=== PATIENT | female | born 1985 | race African-American/Black ===

== ENCOUNTER 2022-09-04 17:07 | Inpatient (IN) | payer SELFPAY ==
[2022-09-04 20:28] VITALS: BMI 26.4
[2022-09-04] MEDS ORDERED: Dextrose 5% in Water 1,000 ML IV PRN (21:20)
[2022-09-04] MEDS ORDERED: Dextrose 50% Abboject 50 ML SYRINGE SLOW IVP PRN (21:20)
[2022-09-04] MEDS ORDERED: Glucagon 1 MG/ML KIT IM PRN (21:20)
[2022-09-04] MEDS: Ketorolac Tromethamine 30 MG/ML VIAL IVP PRN (21:31)
[2022-09-04] MEDS: Lactated Ringer's 1,000 ML IV SCH (21:32)
[2022-09-04] MEDS: Pantoprazole 40 MG VIAL IVP SCH (21:32)
[2022-09-04] MEDS: HumaLOG 300 UNITS/3 ML VIAL SC PRN (21:46)
[2022-09-05 06:29] LABS: Hemoglobin 12.3 g/dL (12.0-16.0); Manual Diff?? YES; Mean Corpuscular HGB CONC 31.6 g/dL (32.0-36.0); Mean Corpuscular Hemoglobin 26.2 pg (27.0-31.0); Mean Corpuscular Volume 82.8 fl (78.0-98.0); Platelet Count 170 10x3/uL (130-400); RBC Distribution Width 14.1 % (11.5-14.5); White Blood Cell (WBC) Count 4.1 10x3/uL (4.8-10.8)
[2022-09-05] MEDS: Lactated Ringer's 1,000 ML IV SCH ×3 (06:35→14:41)
[2022-09-05] MEDS: Morphine 4 MG/ML VIAL SLOW IVP PRN ×3 (06:35→22:37)
[2022-09-05 06:45] LABS: Delete Auto Diff?? YES; Hemoglobin A1c Greater than 14.0 % (4.0-6.0)
[2022-09-05 07:06] LABS: Chloride 104 mmol/L (98-107); Potassium 3.5 mmol/L (3.5-5.1); Sodium 135 mmol/L (136-145)
[2022-09-05 07:13] LABS: Band 29 % (5-11); Eosinophils 1 % (0-10); Large Platelets 8.1 % (0-5); Lymphocytes 34 % (21-51); Metamyelocyte 1 % (0-0); Monocytes 11 % (0-10); Neutrophil 15 % (42-75); Platelet Adequacy Comment Platelets Normal; Polychromasia SLIGHT = 2-3 cells HPF (0-2); Reactive Lymphocytes 6 % (0-10); Total Cell Count 99
[2022-09-05 08:23] LABS: ALT (SGPT) 7 U/L (8-55); AST (SGOT) 9 U/L (5-34); Albumin 3.4 g/dL (3.5-5.0); Alkaline Phosphatase 72 U/L (40-110); Anion Gap 21 mmol/L (10-20); BUN (Urea Nitrogen) 7 mg/dL (7.0-18.7); Bilirubin, Total 0.9 mg/dL (0.2-1.2); Calc. Creatinine Clearance 99 mL/min (70-130); Calcium 8.5 mg/dL (7.8-10.44); Carbon Dioxide 14 mmol/L (22-29); Estimated GFR 86; Globulin 2.7 g/dL (2.4-3.5); Glucose 283 mg/dL (70-105); Protein, Total 6.1 g/dL (6.0-8.3)
[2022-09-05] MEDS: Ketorolac Tromethamine 30 MG/ML VIAL IVP PRN ×2 (18:29→23:02)
[2022-09-05] MEDS: HumaLOG 300 UNITS/3 ML VIAL SC PRN (18:29)
[2022-09-05] MEDS: Pantoprazole 40 MG VIAL IVP SCH (22:37)
[2022-09-06] MEDS ORDERED: Ibuprofen 600 MG TAB PO PRN (00:42)
[2022-09-06] MEDS ORDERED: Acetaminophen 500 MG TAB PO PRN (00:42)
[2022-09-06] MEDS: HumaLOG 300 UNITS/3 ML VIAL SC PRN ×5 (00:55→22:00)
[2022-09-06] MEDS: Lactated Ringer's 1,000 ML IV SCH ×4 (00:55→16:07)
[2022-09-06] MEDS: traMADol HCl 50 MG TAB PO PRN ×3 (01:03→21:48)
[2022-09-06 07:33] LABS: Manual Diff?? YES; Mean Corpuscular HGB CONC 31.8 g/dL (32.0-36.0); Mean Corpuscular Hemoglobin 26.4 pg (27.0-31.0); Mean Corpuscular Volume 82.9 fl (78.0-98.0); Mean Platelet Volume 11.4 fL (7.4-10.4); Platelet Count 165 10x3/uL (130-400); RBC Distribution Width 14.1 % (11.5-14.5); Red Blood Cell (RBC) Count 4.55 mill/uL (4.20-5.40); White Blood Cell (WBC) Count 4.2 10x3/uL (4.8-10.8)
[2022-09-06 07:38] LABS: Delete Auto Diff?? YES
[2022-09-06 07:58] LABS: Anisocytosis SLIGHT = 6-15 cells HPF (0-5); Band 32 % (5-11); CellaVision Operator ID LAB.CLH1; Large Platelets 8.9 % (0-5); Lymphocytes 31 % (21-51); Metamyelocyte 1 % (0-0); Monocytes 14 % (0-10); Myelocyte 1 % (0-0); Neutrophil 21 % (42-75); Platelet Adequacy Comment Platelets Normal; Reactive Lymphocytes 1 % (0-10); Total Cell Count 101
[2022-09-06 08:08] LABS: ALT (SGPT) 7 U/L (8-55); AST (SGOT) 9 U/L (5-34); Albumin 3.4 g/dL (3.5-5.0); Alkaline Phosphatase 75 U/L (40-110); Anion Gap 17 mmol/L (10-20); BUN (Urea Nitrogen) 6 mg/dL (7.0-18.7); Bilirubin, Total 0.6 mg/dL (0.2-1.2); Calc. Creatinine Clearance 94 mL/min (70-130); Calcium 9.1 mg/dL (7.8-10.44); Carbon Dioxide 18 mmol/L (22-29); Chloride 102 mmol/L (98-107); Estimated GFR 81; Glucose 326 mg/dL (70-105); Potassium 3.1 mmol/L (3.5-5.1); Protein, Total 6.4 g/dL (6.0-8.3); Sodium 134 mmol/L (136-145)
[2022-09-06] MEDS ORDERED: Insulin Glargine 30 UNITS/0.3 ML VIAL SC SCH (09:00)
[2022-09-06] MEDS: Morphine 4 MG/ML VIAL SLOW IVP PRN ×2 (10:30→16:13)
[2022-09-06] MEDS: Ondansetron PF 4 MG/2 ML Vial IVP PRN ×2 (10:31→21:49)
[2022-09-06] MEDS: Potassium Chloride 20 MEQ in Premix Bag 1 BAG IVPB SCH ×2 (10:31→12:06)
[2022-09-06] MEDS ORDERED: Potassium Chloride 20 MEQ TAB PO SCH (11:30)
[2022-09-06 12:44] LABS: Creatinine, Urine 74.92 mg/dL (47-110); Microalbumin Urine 1.2 mg/dL (0.5-50.0)
[2022-09-06] MEDS: Ketorolac Tromethamine 30 MG/ML VIAL IVP PRN ×2 (13:58→21:49)
[2022-09-06] MEDS: metFORMIN 500 MG TAB PO SCH (16:07)
[2022-09-06] MEDS: glipiZIDE 5 MG TAB PO SCH (16:07)
[2022-09-06] MEDS ORDERED: Promethazine HCl 12.5 MG in Sodium Chloride 0.9% 50 ML IVPB SCH (20:30)
[2022-09-06] MEDS: Pantoprazole 40 MG VIAL IVP SCH (21:50)
[2022-09-07] MEDS: Lactated Ringer's 1,000 ML IV SCH ×5 (03:09→23:00)
[2022-09-07 05:44] LABS: Hemoglobin 12.7 g/dL (12.0-16.0); Manual Diff?? YES; Mean Corpuscular HGB CONC 31.8 g/dL (32.0-36.0); Mean Corpuscular Hemoglobin 26.3 pg (27.0-31.0); Mean Corpuscular Volume 82.8 fl (78.0-98.0); Platelet Count 186 10x3/uL (130-400); RBC Distribution Width 13.7 % (11.5-14.5); Red Blood Cell (RBC) Count 4.83 mill/uL (4.20-5.40); White Blood Cell (WBC) Count 3.1 10x3/uL (4.8-10.8)
[2022-09-07 06:10] LABS: ALT (SGPT) 8 U/L (8-55); AST (SGOT) 12 U/L (5-34); Albumin 3.4 g/dL (3.5-5.0); Alkaline Phosphatase 71 U/L (40-110); Anion Gap 17 mmol/L (10-20); BUN (Urea Nitrogen) 6 mg/dL (7.0-18.7); Bilirubin, Total 0.7 mg/dL (0.2-1.2); Calc. Creatinine Clearance 111 mL/min (70-130); Carbon Dioxide 18 mmol/L (22-29); Cardiac Risk 4.3 (Less than 4.5); Chloride 102 mmol/L (98-107); Cholesterol 156 mg/dl (< 200 Desired); Estimated GFR 100; Globulin 2.9 g/dL (2.4-3.5); Glucose 233 mg/dL (70-105); HDL Cholesterol 36 mg/dL (>60 Neg Risk); LDL Cholesterol, Calculated 96 mg/dL; Magnesium 1.4 mg/dL (1.6-2.6); Phosphorus 4.5 mg/dL (2.3-4.7); Potassium 3.4 mmol/L (3.5-5.1); Protein, Total 6.3 g/dL (6.0-8.3); Sodium 134 mmol/L (136-145); Triglycerides 118 mg/dL (Less than 150)
[2022-09-07 06:19] LABS: Delete Auto Diff?? YES
[2022-09-07] MEDS: glipiZIDE 5 MG TAB PO SCH ×2 (06:23→18:38)
[2022-09-07 07:09] LABS: Band 44 % (5-11); CellaVision Operator ID LAB.JMM; Eosinophils 1 % (0-10); Large Platelets 6.9 % (0-5); Lymphocytes 19 % (21-51); Metamyelocyte 1 % (0-0); Monocytes 14 % (0-10); Neutrophil 19 % (42-75); Platelet Adequacy Comment Platelets Normal; RBC Morphology Within Normal Limits; Reactive Lymphocytes 2 % (0-10); Smudge Cells 10.9 %; Total Cell Count 101
[2022-09-07] MEDS ORDERED: Magnesium Sulfate In Water 4 GM in Premix Bag 1 BAG IVPB SCH (08:15)
[2022-09-07] MEDS: metFORMIN 500 MG TAB PO SCH (10:34)
[2022-09-07] MEDS: Potassium Chloride 20 MEQ in Premix Bag 1 BAG IVPB SCH ×2 (10:53→12:54)
[2022-09-07] MEDS ORDERED: Morphine 2 MG/ML VIAL SLOW IVP PRN (11:41)
[2022-09-07] MEDS ORDERED: Morphine 2 MG/ML VIAL SLOW IVP SCH ×2 (11:45→20:00)
[2022-09-07] MEDS: HumaLOG 300 UNITS/3 ML VIAL SC PRN ×2 (13:19→18:55)
[2022-09-07] MEDS ORDERED: HumaLOG 300 UNITS/3 ML VIAL SC PRN (16:08)
[2022-09-07] MEDS ORDERED: Morphine 4 MG/ML VIAL ONE (18:19)
[2022-09-07] MEDS ORDERED: Morphine 4 MG/ML VIAL SLOW IVP SCH (18:45)
[2022-09-07] MEDS: Pantoprazole 40 MG VIAL IVP SCH (20:07)
[2022-09-07] MEDS ORDERED: Insulin Glargine 30 UNITS/0.3 ML VIAL SC SCH (21:00)
[2022-09-07] MEDS ORDERED: fentaNYL PF 100 MCG/2 ML SYRINGE ONE (22:56)
[2022-09-07] MEDS ORDERED: HYDROmorphone 2 MG/ML VIAL ONE (22:56)
[2022-09-07] MEDS ORDERED: SUGAMMADEX SODIUM 200 MG/2 ML VIAL ONE (22:57)
[2022-09-07] MEDS ORDERED: Ondansetron PF 4 MG/2 ML Vial ONE (23:58)
[2022-09-07] MEDS ORDERED: Dexamethasone 20 MG/5 ML VIAL ONE (23:58)
[2022-09-07] MEDS ORDERED: Lidocaine 1% PF 5 ML VIAL ONE (23:58)
[2022-09-07] MEDS ORDERED: Rocuronium Bromide 10 MG/ML (10ML VIAL) ONE (23:58)
[2022-09-07] MEDS ORDERED: PROPOFOL 200 MG/20 ML VIAL ONE (23:58)
[2022-09-07] MEDS ORDERED: PHENYLEPHRINE-NS 100 MCG/ML 10 ML SYRINGE ONE (23:58)
[2022-09-07] MEDS ORDERED: Ketorolac Tromethamine 30 MG/ML VIAL ONE (23:58)
[2022-09-08] MEDS ORDERED: fentaNYL 50 mcg/mL 1 mL Vial ONE ×4 (01:39→02:24)
[2022-09-08] MEDS ORDERED: Promethazine HCl 25 MG/ML VIAL IM PRN (01:59)
[2022-09-08] MEDS ORDERED: diphenhydrAMINE 25 MG CAP PO PRN (01:59)
[2022-09-08] MEDS ORDERED: diphenhydrAMINE 50 MG/ML VIAL IVP PRN (01:59)
[2022-09-08] MEDS ORDERED: diphenhydrAMINE 50 MG/ML VIAL IM PRN (01:59)
[2022-09-08] MEDS ORDERED: Naloxone HCl 0.4 mg/ml Vial IV PRN (01:59)
[2022-09-08] MEDS ORDERED: HYDROmorphone 10 mg/100 ml CADD IVPB PRN (01:59)
[2022-09-08] MEDS ORDERED: Communication Order-Pharmacy FS SCH (02:00)
[2022-09-08] MEDS: Ketorolac Tromethamine 30 MG/ML VIAL IVP PRN ×2 (03:30→23:33)
[2022-09-08] MEDS: HumaLOG 300 UNITS/3 ML VIAL SC PRN ×4 (06:31→20:52)
[2022-09-08 06:33] LABS: Hemoglobin 13.4 g/dL (12.0-16.0); Mean Corpuscular HGB CONC 31.3 g/dL (32.0-36.0); Mean Corpuscular Hemoglobin 26.2 pg (27.0-31.0); Mean Corpuscular Volume 83.6 fl (78.0-98.0); Mean Platelet Volume 11.1 fL (7.4-10.4); Platelet Count 198 10x3/uL (130-400); RBC Distribution Width 13.9 % (11.5-14.5); Red Blood Cell (RBC) Count 5.12 mill/uL (4.20-5.40); White Blood Cell (WBC) Count 3.2 10x3/uL (4.8-10.8)
[2022-09-08 06:39] LABS: Delete Auto Diff?? YES; Manual Diff?? YES
[2022-09-08 06:59] LABS: ALT (SGPT) 9 U/L (8-55); AST (SGOT) 11 U/L (5-34); Albumin 3.2 g/dL (3.5-5.0); Alkaline Phosphatase 67 U/L (40-110); Anion Gap 20 mmol/L (10-20); BUN (Urea Nitrogen) 7 mg/dL (7.0-18.7); Bilirubin, Total 0.5 mg/dL (0.2-1.2); Calc. Creatinine Clearance 106 mL/min (70-130); Calcium 8.2 mg/dL (7.8-10.44); Carbon Dioxide 14 mmol/L (22-29); Chloride 107 mmol/L (98-107); Estimated GFR 94; Globulin 2.7 g/dL (2.4-3.5); Glucose 323 mg/dL (70-105); Magnesium 1.7 mg/dL (1.6-2.6); Phosphorus 4.5 mg/dL (2.3-4.7); Potassium 3.7 mmol/L (3.5-5.1); Protein, Total 5.9 g/dL (6.0-8.3); Sodium 137 mmol/L (136-145)
[2022-09-08 07:02] LABS: Band 48 % (5-11); Burr Cells SLIGHT = 2-5 cells HPF (0-1); CellaVision Operator ID lab.abc; Large Platelets 8.6 % (0-5); Lymphocytes 11 % (21-51); Metamyelocyte 2 % (0-0); Monocytes 15 % (0-10); Neutrophil 25 % (42-75); Platelet Adequacy Comment Platelets Normal; RBC Morphology Within Normal Limits; Smudge Cells 9.5 %; Total Cell Count 105
[2022-09-08] MEDS ORDERED: HumaLOG 300 UNITS/3 ML VIAL SC PRN (08:24)
[2022-09-08] MEDS ORDERED: Sodium Chloride 0.9% 1,000 ML IV SCH (08:30)
[2022-09-08] MEDS ORDERED: Potassium Chloride 20 MEQ in Premix Bag 1 BAG IVPB SCH (08:30)
[2022-09-08] MEDS ORDERED: Insulin Glargine 30 UNITS/0.3 ML VIAL SC SCH ×2 (09:00→21:00)
[2022-09-08] MEDS: Lactated Ringer's 1,000 ML IV SCH (09:51)
[2022-09-08] MEDS ORDERED: Magnesium Sulfate In Water 4 GM in Premix Bag 1 BAG IVPB SCH (10:00)
[2022-09-08] MEDS: D5 LR w/20 mEq KCL 1,000 ML IV SCH ×2 (12:19→20:43)
[2022-09-08 16:39] LABS: Anion Gap 16 mmol/L (10-20); BUN (Urea Nitrogen) 5 mg/dL (7.0-18.7); Calc. Creatinine Clearance 118 mL/min (70-130); Calcium 8.3 mg/dL (7.8-10.44); Carbon Dioxide 18 mmol/L (22-29); Chloride 106 mmol/L (98-107); Estimated GFR 106; Glucose 283 mg/dL (70-105); Sodium 136 mmol/L (136-145)
[2022-09-08] MEDS: Pantoprazole 40 MG VIAL IVP SCH (20:02)
[2022-09-09] MEDS: HumaLOG 300 UNITS/3 ML VIAL SC PRN ×4 (01:38→17:15)
[2022-09-09] MEDS: D5 LR w/20 mEq KCL 1,000 ML IV SCH (04:58)
[2022-09-09 06:14] LABS: #Monocytes 1.2 thou/uL (0.11-0.59); #Neutrophils 2.1 thou/uL (1.40-6.50); %Basophils 0.4 % (0.0-1.0); %Eosinophils 0.9 % (0.0-10.0); %Lymphocytes 25.9 % (21.0-51.0); %Monocytes 26.4 % (0.0-10.0); Hemoglobin 11.4 g/dL (12.0-16.0); Manual Diff?? YES; Mean Corpuscular HGB CONC 31.6 g/dL (32.0-36.0); Mean Corpuscular Hemoglobin 26.3 pg (27.0-31.0); Mean Corpuscular Volume 83.4 fl (78.0-98.0); Mean Platelet Volume 11.2 fL (7.4-10.4); Platelet Count 187 10x3/uL (130-400); Red Blood Cell (RBC) Count 4.33 mill/uL (4.20-5.40); White Blood Cell (WBC) Count 4.6 10x3/uL (4.8-10.8)
[2022-09-09 06:41] LABS: ALT (SGPT) 8 U/L (8-55); AST (SGOT) 8 U/L (5-34); Alkaline Phosphatase 67 U/L (40-110); Anion Gap 11 mmol/L (10-20); BUN (Urea Nitrogen) 5 mg/dL (7.0-18.7); Bilirubin, Total 0.4 mg/dL (0.2-1.2); Calc. Creatinine Clearance 116 mL/min (70-130); Calcium 8.4 mg/dL (7.8-10.44); Carbon Dioxide 22 mmol/L (22-29); Chloride 108 mmol/L (98-107); Estimated GFR 104; Globulin 2.7 g/dL (2.4-3.5); Glucose 248 mg/dL (70-105); Magnesium 2.1 mg/dL (1.6-2.6); Potassium 3.2 mmol/L (3.5-5.1); Protein, Total 5.7 g/dL (6.0-8.3); Sodium 138 mmol/L (136-145)
[2022-09-09 06:48] LABS: Phosphorus 2.1 mg/dL (2.3-4.7)
[2022-09-09] MEDS ORDERED: HumaLOG 300 UNITS/3 ML VIAL SC PRN (07:29)
[2022-09-09] MEDS ORDERED: Insulin Glargine 30 UNITS/0.3 ML VIAL SC SCH ×2 (07:30→09:00)
[2022-09-09 07:36] LABS: Band 38 % (5-11); Eosinophils 1 % (0-10); Lymphocytes 25 % (21-51); Monocytes 24 % (0-10); Neutrophil 10 % (42-75); Platelet Adequacy Comment Platelets Normal; Total Cell Count 100
[2022-09-09] MEDS ORDERED: Dextrose 5%-Lactated Ringers 1,000 ML IV SCH ×2 (10:45→10:57)
[2022-09-09] MEDS: Potassium Chloride 20 MEQ in Premix Bag 1 BAG IVPB SCH ×2 (12:29→23:57)
[2022-09-09] MEDS: Ketorolac Tromethamine 30 MG/ML VIAL IVP PRN ×2 (12:43→20:34)
[2022-09-09] MEDS: Dextrose 5%-Lactated Ringers 1,000 ML IV SCH (20:33)
[2022-09-09] MEDS: traMADol HCl 50 MG TAB PO PRN (20:34)
[2022-09-09] MEDS ORDERED: Phenol 118 ML BOT PO PRN (20:43)
[2022-09-09] MEDS: Pantoprazole 40 MG VIAL IVP SCH (20:47)
[2022-09-09] MEDS: Ondansetron PF 4 MG/2 ML Vial IVP PRN (23:57)
[2022-09-10] MEDS: Dextrose 5%-Lactated Ringers 1,000 ML IV SCH ×2 (04:25→13:43)
[2022-09-10 06:19] LABS: #Eosinphils 0.1 thou/uL (0.0-0.7); #Monocytes 0.7 thou/uL (0.11-0.59); #Neutrophils 1.8 thou/uL (1.40-6.50); %Basophils 0.2 % (0.0-1.0); %Eosinophils 1.6 % (0.0-10.0); %Lymphocytes 38.7 % (21.0-51.0); %Monocytes 16.8 % (0.0-10.0); %Neutrophils 42.2 % (42.0-75.0); Hemoglobin 10.3 g/dL (12.0-16.0); Mean Corpuscular HGB CONC 31.9 g/dL (32.0-36.0); Mean Corpuscular Hemoglobin 26.1 pg (27.0-31.0); Mean Platelet Volume 11.4 fL (7.4-10.4); Platelet Count 186 10x3/uL (130-400); RBC Distribution Width 14.1 % (11.5-14.5); Red Blood Cell (RBC) Count 3.94 mill/uL (4.20-5.40); White Blood Cell (WBC) Count 4.3 10x3/uL (4.8-10.8)
[2022-09-10 06:46] LABS: Phosphorus 3.5 mg/dL (2.3-4.7)
[2022-09-10 06:48] LABS: ALT (SGPT) 7 U/L (8-55); AST (SGOT) 7 U/L (5-34); Albumin 2.7 g/dL (3.5-5.0); Alkaline Phosphatase 63 U/L (40-110); Anion Gap 11 mmol/L (10-20); BUN (Urea Nitrogen) 6 mg/dL (7.0-18.7); Bilirubin, Total 0.3 mg/dL (0.2-1.2); Calc. Creatinine Clearance 136 mL/min (70-130); Calcium 8.1 mg/dL (7.8-10.44); Carbon Dioxide 24 mmol/L (22-29); Chloride 110 mmol/L (98-107); Estimated GFR 116; Globulin 2.1 g/dL (2.4-3.5); Glucose 193 mg/dL (70-105); Magnesium 1.8 mg/dL (1.6-2.6); Potassium 3.7 mmol/L (3.5-5.1); Protein, Total 4.8 g/dL (6.0-8.3); Sodium 141 mmol/L (136-145)
[2022-09-10] MEDS ORDERED: Magnesium 2 GM/50 ML(in water) 2 GM in Premix Bag 1 BAG IVPB SCH (08:00)
[2022-09-10] MEDS ORDERED: Insulin Glargine 30 UNITS/0.3 ML VIAL SC SCH (09:00)
[2022-09-10] MEDS ORDERED: Morphine 2 MG/ML VIAL SLOW IVP PRN (09:11)
[2022-09-10] MEDS: Potassium Chloride 20 MEQ in Premix Bag 1 BAG IVPB SCH ×2 (10:34→14:10)
[2022-09-10] MEDS: HumaLOG 300 UNITS/3 ML VIAL SC PRN (12:04)
[2022-09-10] MEDS: Acetaminophen 500 MG TAB PO SCH ×2 (12:06→17:56)
[2022-09-10] MEDS: traMADol HCl 50 MG TAB PO SCH ×2 (12:06→17:56)
[2022-09-10] MEDS ORDERED: Dextrose 5%-Lactated Ringers 1,000 ML IV SCH ×2 (12:23→13:57)
[2022-09-10] MEDS ORDERED: HumaLOG 300 UNITS/3 ML VIAL SC PRN ×2 (12:23)
[2022-09-10] MEDS: traMADol HCl 50 MG TAB PO PRN (15:19)
[2022-09-10] MEDS: Potassium Bicarbonate/Cit Ac 20 MEQ TAB PO SCH ×2 (17:57→21:27)
[2022-09-10] MEDS ORDERED: D5 1/2 NS w/20 mEq KCL 1,000 ML IV SCH (19:15)
[2022-09-10] MEDS: Ketorolac Tromethamine 30 MG/ML VIAL IVP PRN (21:27)
[2022-09-10] MEDS: Cyclobenzaprine 10 MG TAB PO PRN (21:27)
[2022-09-10] MEDS: Pantoprazole 40 MG VIAL IVP SCH (21:36)
[2022-09-10] MEDS: Ondansetron PF 4 MG/2 ML Vial IVP PRN (21:55)
[2022-09-10] MEDS ORDERED: Simethicone Chewable 80 MG TAB PO PRN (22:41)
[2022-09-11] MEDS: Acetaminophen 500 MG TAB PO SCH ×4 (01:24→18:22)
[2022-09-11] MEDS: traMADol HCl 50 MG TAB PO SCH ×5 (01:25→21:38)
[2022-09-11] MEDS ORDERED: Ibuprofen 600 MG TAB PO PRN (02:00)
[2022-09-11 06:05] LABS: #Eosinphils 0.1 thou/uL (0.0-0.7); #Monocytes 0.7 thou/uL (0.11-0.59); #Neutrophils 1.8 thou/uL (1.40-6.50); %Basophils 0.5 % (0.0-1.0); %Eosinophils 2.2 % (0.0-10.0); %Lymphocytes 37.5 % (21.0-51.0); %Monocytes 16.3 % (0.0-10.0); %Neutrophils 43.3 % (42.0-75.0); Mean Corpuscular HGB CONC 31.4 g/dL (32.0-36.0); Mean Corpuscular Hemoglobin 26.2 pg (27.0-31.0); Mean Corpuscular Volume 83.5 fl (78.0-98.0); Mean Platelet Volume 10.5 fL (7.4-10.4); Platelet Count 204 10x3/uL (130-400); RBC Distribution Width 14.2 % (11.5-14.5); Red Blood Cell (RBC) Count 3.81 mill/uL (4.20-5.40); White Blood Cell (WBC) Count 4.2 10x3/uL (4.8-10.8)
[2022-09-11 06:25] LABS: Phosphorus 3.5 mg/dL (2.3-4.7)
[2022-09-11 06:26] LABS: ALT (SGPT) 9 U/L (8-55); AST (SGOT) 11 U/L (5-34); Albumin 2.9 g/dL (3.5-5.0); Alkaline Phosphatase 66 U/L (40-110); Anion Gap 10 mmol/L (10-20); BUN (Urea Nitrogen) 6 mg/dL (7.0-18.7); Bilirubin, Total 0.3 mg/dL (0.2-1.2); Calc. Creatinine Clearance 140 mL/min (70-130); Calcium 8.3 mg/dL (7.8-10.44); Carbon Dioxide 26 mmol/L (22-29); Chloride 107 mmol/L (98-107); Estimated GFR 117; Globulin 2.6 g/dL (2.4-3.5); Glucose 128 mg/dL (70-105); Magnesium 1.9 mg/dL (1.6-2.6); Potassium 3.5 mmol/L (3.5-5.1); Protein, Total 5.5 g/dL (6.0-8.3); Sodium 139 mmol/L (136-145)
[2022-09-11] MEDS: Insulin NPH Human Isophane 100 UNITS/ML (10 ML VIAL) SC SCH (08:40)
[2022-09-11] MEDS: Potassium Chloride 20 MEQ TAB PO SCH ×2 (08:41→18:22)
[2022-09-11] MEDS ORDERED: Insulin Glargine 30 UNITS/0.3 ML VIAL SC SCH (09:00)
[2022-09-11] MEDS ORDERED: Naloxegol 12.5 MG TAB PO SCH (11:45)
[2022-09-11] MEDS: Ibuprofen 200 MG TAB PO PRN (21:38)
[2022-09-11] MEDS: Pantoprazole 40 MG VIAL IVP SCH (21:39)
[2022-09-11] MEDS: Cyclobenzaprine 10 MG TAB PO PRN (21:41)
[2022-09-12] MEDS: Acetaminophen 500 MG TAB PO SCH ×5 (00:12→23:28)
[2022-09-12] MEDS: traMADol HCl 50 MG TAB PO PRN (00:12)
[2022-09-12] MEDS: traMADol HCl 50 MG TAB PO SCH ×4 (06:20→23:29)
[2022-09-12] MEDS: Naloxegol 12.5 MG TAB PO SCH (06:21)
[2022-09-12 07:41] LABS: #Monocytes 0.9 thou/uL (0.11-0.59); #Neutrophils 3.8 thou/uL (1.40-6.50); %Basophils 0.3 % (0.0-1.0); %Eosinophils 0.6 % (0.0-10.0); %Lymphocytes 26.2 % (21.0-51.0); %Neutrophils 58.7 % (42.0-75.0); Hemoglobin 10.3 g/dL (12.0-16.0); Mean Corpuscular HGB CONC 31.2 g/dL (32.0-36.0); Mean Corpuscular Hemoglobin 25.8 pg (27.0-31.0); Mean Corpuscular Volume 82.7 fl (78.0-98.0); Mean Platelet Volume 10.3 fL (7.4-10.4); Platelet Count 222 10x3/uL (130-400); RBC Distribution Width 13.9 % (11.5-14.5); Red Blood Cell (RBC) Count 3.99 mill/uL (4.20-5.40); White Blood Cell (WBC) Count 6.4 10x3/uL (4.8-10.8)
[2022-09-12 07:56] LABS: ALT (SGPT) 10 U/L (8-55); AST (SGOT) 12 U/L (5-34); Alkaline Phosphatase 73 U/L (40-110); Anion Gap 12 mmol/L (10-20); BUN (Urea Nitrogen) 6 mg/dL (7.0-18.7); Bilirubin, Total 0.3 mg/dL (0.2-1.2); Calc. Creatinine Clearance 143 mL/min (70-130); Calcium 8.6 mg/dL (7.8-10.44); Carbon Dioxide 25 mmol/L (22-29); Chloride 102 mmol/L (98-107); Estimated GFR 117; Globulin 2.5 g/dL (2.4-3.5); Glucose 93 mg/dL (70-105); Potassium 3.3 mmol/L (3.5-5.1); Protein, Total 5.5 g/dL (6.0-8.3); Sodium 136 mmol/L (136-145)
[2022-09-12 08:33] LABS: Magnesium 1.6 mg/dL (1.6-2.6); Phosphorus 4.3 mg/dL (2.3-4.7)
[2022-09-12] MEDS: Insulin NPH Human Isophane 100 UNITS/ML (10 ML VIAL) SC SCH (08:56)
[2022-09-12] MEDS: Potassium Chloride 20 MEQ TAB PO SCH ×2 (08:56→18:11)
[2022-09-12] MEDS ORDERED: Potassium Chloride 20 MEQ TAB PO SCH ×2 (09:15→21:00)
[2022-09-12] MEDS ORDERED: Magnesium Sulfate In Water 4 GM in Premix Bag 1 BAG IVPB SCH (11:00)
[2022-09-12] MEDS ORDERED: Potassium Chloride 20 MEQ in Premix Bag 1 BAG IVPB SCH (19:00)
[2022-09-12] MEDS: Pantoprazole 40 MG VIAL IVP SCH (20:46)
[2022-09-12] MEDS: Cyclobenzaprine 10 MG TAB PO PRN (20:54)
[2022-09-13] MEDS: traMADol HCl 50 MG TAB PO PRN ×3 (01:18→20:57)
[2022-09-13] MEDS: traMADol HCl 50 MG TAB PO SCH ×4 (06:32→23:27)
[2022-09-13] MEDS: Acetaminophen 500 MG TAB PO SCH ×4 (06:33→23:27)
[2022-09-13] MEDS: Naloxegol 12.5 MG TAB PO SCH (06:33)
[2022-09-13 08:00] LABS: #Eosinphils 0.1 thou/uL (0.0-0.7); #Monocytes 0.6 thou/uL (0.11-0.59); #Neutrophils 2.5 thou/uL (1.40-6.50); %Basophils 0.2 % (0.0-1.0); %Monocytes 11.9 % (0.0-10.0); %Neutrophils 47.5 % (42.0-75.0); Hemoglobin 10.7 g/dL (12.0-16.0); Mean Corpuscular HGB CONC 31.4 g/dL (32.0-36.0); Mean Platelet Volume 10.2 fL (7.4-10.4); Platelet Count 244 10x3/uL (130-400); RBC Distribution Width 13.9 % (11.5-14.5); Red Blood Cell (RBC) Count 4.11 mill/uL (4.20-5.40); White Blood Cell (WBC) Count 5.2 10x3/uL (4.8-10.8)
[2022-09-13 08:43] LABS: ALT (SGPT) 12 U/L (8-55); AST (SGOT) 14 U/L (5-34); Alkaline Phosphatase 80 U/L (40-110); Anion Gap 13 mmol/L (10-20); BUN (Urea Nitrogen) 4 mg/dL (7.0-18.7); Bilirubin, Total 0.2 mg/dL (0.2-1.2); Calc. Creatinine Clearance 138 mL/min (70-130); Calcium 8.4 mg/dL (7.8-10.44); Carbon Dioxide 24 mmol/L (22-29); Chloride 102 mmol/L (98-107); Estimated GFR 116; Globulin 2.7 g/dL (2.4-3.5); Glucose 100 mg/dL (70-105); Magnesium 1.9 mg/dL (1.6-2.6); Potassium 4.1 mmol/L (3.5-5.1); Protein, Total 5.7 g/dL (6.0-8.3); Sodium 135 mmol/L (136-145)
[2022-09-13] MEDS: Polyethylene Glycol 3350 17 GM Packet PO SCH (10:00)
[2022-09-13] MEDS: Senokot S 8.6-50 MG TAB PO SCH ×2 (10:00→20:57)
[2022-09-13] MEDS: Alogliptin 6.25 MG TAB PO SCH (10:00)
[2022-09-13] MEDS: Ibuprofen 200 MG TAB PO PRN (14:55)
[2022-09-13 17:51] LABS: #Eosinphils 0.1 thou/uL (0.0-0.7); #Monocytes 0.6 thou/uL (0.11-0.59); #Neutrophils 3.3 thou/uL (1.40-6.50); %Basophils 0.7 % (0.0-1.0); %Lymphocytes 30.3 % (21.0-51.0); %Monocytes 10.3 % (0.0-10.0); %Neutrophils 57.2 % (42.0-75.0); Hemoglobin 13.3 g/dL (12.0-16.0); Mean Corpuscular HGB CONC 31.6 g/dL (32.0-36.0); Mean Corpuscular Hemoglobin 26.1 pg (27.0-31.0); Mean Corpuscular Volume 82.7 fl (78.0-98.0); Mean Platelet Volume 10.3 fL (7.4-10.4); Platelet Count 293 10x3/uL (130-400); RBC Distribution Width 13.8 % (11.5-14.5); Red Blood Cell (RBC) Count 5.09 mill/uL (4.20-5.40); White Blood Cell (WBC) Count 5.8 10x3/uL (4.8-10.8)
[2022-09-13 18:25] LABS: Anion Gap 18 mmol/L (10-20); BUN (Urea Nitrogen) Less than 4 mg/dL (7.0-18.7); Calc. Creatinine Clearance 134 mL/min (70-130); Calcium 9.4 mg/dL (7.8-10.44); Carbon Dioxide 21 mmol/L (22-29); Chloride 100 mmol/L (98-107); Estimated GFR 116; Glucose 99 mg/dL (70-105); Phosphorus 4.5 mg/dL (2.3-4.7); Potassium 4.5 mmol/L (3.5-5.1); Sodium 134 mmol/L (136-145)
[2022-09-13] MEDS: Cyclobenzaprine 10 MG TAB PO PRN (20:58)
[2022-09-14 05:55] LABS: #Eosinphils 0.1 thou/uL (0.0-0.7); #Monocytes 0.8 thou/uL (0.11-0.59); #Neutrophils 3.7 thou/uL (1.40-6.50); %Basophils 0.6 % (0.0-1.0); %Lymphocytes 32.8 % (21.0-51.0); %Monocytes 11.9 % (0.0-10.0); %Neutrophils 53.1 % (42.0-75.0); Hemoglobin 11.8 g/dL (12.0-16.0); Mean Corpuscular HGB CONC 32.2 g/dL (32.0-36.0); Mean Corpuscular Hemoglobin 26.1 pg (27.0-31.0); Mean Corpuscular Volume 81.2 fl (78.0-98.0); Mean Platelet Volume 10.1 fL (7.4-10.4); Platelet Count 269 10x3/uL (130-400); RBC Distribution Width 13.8 % (11.5-14.5); Red Blood Cell (RBC) Count 4.52 mill/uL (4.20-5.40)
[2022-09-14] MEDS: traMADol HCl 50 MG TAB PO SCH ×2 (06:09→11:20)
[2022-09-14] MEDS: Naloxegol 12.5 MG TAB PO SCH (06:10)
[2022-09-14] MEDS: Acetaminophen 500 MG TAB PO SCH ×2 (06:10→11:20)
[2022-09-14 06:18] LABS: Phosphorus 5.2 mg/dL (2.3-4.7)
[2022-09-14 06:31] LABS: ALT (SGPT) 21 U/L (8-55); AST (SGOT) 31 U/L (5-34); Alkaline Phosphatase 91 U/L (40-110); Anion Gap 14 mmol/L (10-20); BUN (Urea Nitrogen) 4 mg/dL (7.0-18.7); Bilirubin, Total 0.3 mg/dL (0.2-1.2); Calc. Creatinine Clearance 134 mL/min (70-130); Calcium 8.9 mg/dL (7.8-10.44); Carbon Dioxide 25 mmol/L (22-29); Chloride 99 mmol/L (98-107); Estimated GFR 116; Globulin 2.8 g/dL (2.4-3.5); Glucose 153 mg/dL (70-105); Magnesium 1.7 mg/dL (1.6-2.6); Protein, Total 5.8 g/dL (6.0-8.3); Sodium 134 mmol/L (136-145)
[2022-09-14] MEDS: Polyethylene Glycol 3350 17 GM Packet PO SCH (08:19)
[2022-09-14] MEDS: Alogliptin 6.25 MG TAB PO SCH (08:19)
[2022-09-14] MEDS: Senokot S 8.6-50 MG TAB PO SCH (08:20)
[2022-09-14 11:38] VITALS: TEMP 98
[2022-09-14 15:26] VITALS: BP 118/79
== END 2022-09-14 15:40 | disposition home or self-care (01) | DRG 335 ==
LOC: SURG A 19:05
PROVIDERS: ADMIT Specialist; ATTEND Emergency Medicine
PROC: 0DN80ZZ Release Small Intestine, Open Approach (ICD-10-PCS; principal; 2022-09-08)
PROC: 0W9G0ZZ Drainage of Peritoneal Cavity, Open Approach (ICD-10-PCS; 2022-09-08)
PROC: 3E0M05Z Introduction of Adhesion Barrier into Peritoneal Cavity, Open Approach (ICD-10-PCS; 2022-09-08)
DX: K56.52 Intestinal adhesions [bands] with complete obstruction (principal); E11.10 Type 2 diabetes mellitus with ketoacidosis without coma; N17.9 Acute kidney failure, unspecified; K91.89 Other postprocedural complications and disorders of digestive system; R18.8 Other ascites; E86.0 Dehydration; F17.210 Nicotine dependence, cigarettes, uncomplicated; E11.65 Type 2 diabetes mellitus with hyperglycemia; D72.819 Decreased white blood cell count, unspecified; E83.42 Hypomagnesemia; E87.6 Hypokalemia; E83.39 Other disorders of phosphorus metabolism; K56.0 Paralytic ileus; Z98.51 Tubal ligation status; Z98.890 Other specified postprocedural states; Z80.9 Family history of malignant neoplasm, unspecified; Z79.899 Other long term (current) drug therapy; Z79.4 Long term (current) use of insulin; Z91.148 Patient's other noncompliance with medication regimen for other reason; K42.9 Umbilical hernia without obstruction or gangrene
CPT/HCPCS: 36415; 36416; 74019; 74250; 80053; 80061; 82010; 82043; 83036; 83735; 84100; 85025; C1776; C9113; J1100; J1170; J1650; J1815; J1885; J2270; J2272; J2405; J2550; J2704; J3010; J3475; J3480; J7030; J7050; J7120

== ENCOUNTER 2023-09-27 22:47 | Emergency (ER) | payer OTHER, SELFPAY ==
[2023-09-27 23:34] LABS: Bacteria/HPF None Seen HPF (None Seen); Bilirubin Negative (Negative); Blood, Urine Negative (Negative); CAUTI Indications for Culture Pelvic or flank pain; Clarity Clear (Clear); Glucose, Urine (Dipstick) Greater than 1000 mg/dL (Negative); Ketone, Urine 20 mg/dL (Negative); Leukocyte Negative Leu/uL (Negative); Nitrite Negative (Negative); Protein, Urine (Dipstick) Negative (Neg-Trace); RBC/HPF 0-3 HPF (0-3); Squamous Epithelial 0-3 HPF (0-3); Urobilinogen Normal mg/dL (Less than 2); WBC/HPF 0-3 HPF (0-3)
[2023-09-27 23:36] LABS: Urine Culture Reflex No No
[2023-09-27 23:56] LABS: #Basophils Less than 0.03 10x3/uL (0.0-0.2); %Basophils 0.3 % (0.0-1.0); %Eosinophils 0.8 % (0.0-10.0); %Lymphocytes 40.3 % (21.0-51.0); %Neutrophils 48.3 % (42.0-75.0); Hematocrit 35.2 % (36.0-47.0); Hemoglobin 11.5 g/dL (12.0-16.0); Mean Corpuscular HGB CONC 32.7 g/dL (32.0-36.0); Mean Corpuscular Hemoglobin 26.9 pg (27.0-31.0); Mean Corpuscular Volume 82.2 fL (78.0-98.0); Mean Platelet Volume 11.4 fL (7.4-10.4); Platelet Count 154 10x3/uL (130-400); RBC Distribution Width 13.7 % (11.5-14.5); Red Blood Cell (RBC) Count 4.28 mill/uL (4.20-5.40)
[2023-09-28 00:14] LABS: BHCG - Serum Negative (NEGATIVE); Pregs Control Background? CLEAR/WHITE (CLR/WHITE); Pregs Control Bar Appear? YES (CONTROL BAR)
[2023-09-28 00:24] LABS: ALT (SGPT) 13 U/L (8-55); AST (SGOT) 10 U/L (5-34); Albumin 3.3 g/dL (3.5-5.0); Alkaline Phosphatase 78 U/L (40-110); Anion Gap 14 mmol/L (10-20); BUN (Urea Nitrogen) 12 mg/dL (7.0-18.7); Bilirubin, Total 0.3 mg/dL (0.2-1.2); Calc. Creatinine Clearance 0 mL/min (70-130); Calcium 8.5 mg/dL (7.8-10.44); Carbon Dioxide 19 mmol/L (22-29); Chloride 104 mmol/L (98-107); Estimated GFR 91; Globulin 2.7 g/dL (2.4-3.5); Glucose 423 mg/dL (70-105); Lipase 34 U/L (8-78); Magnesium 1.7 mg/dL (1.6-2.6); Potassium 3.5 mmol/L (3.5-5.1); Sodium 133 mmol/L (136-145)
[2023-09-28 00:35] LABS: Troponin I Less than 0.010 ng/mL (< 0.028)
[2023-09-28 01:52] LABS: Actual Bicarbonate (HCO3v) 21.3 mEq/L (22-28); Analyzer IN Cardio ER; Base Excess -3.8 mEq/L (-2.0 to +3.0); Calcium, Ionized (venous) 1.12 mmol/L (1.16-1.32); Chloride (VBG) 101 mmol/L (98-106); Hematocrit-VBG 36 % (36.0-47.0); Hemoglobin (Hb) 12.3 g/dL (11.7-15.5); Sodium 134 mmol/L (133-146); pH (venous) 7.359 (7.32-7.43)
[2023-09-28] MEDS ORDERED: Potassium Bicarbonate/Cit Ac 20 MEQ TAB ONE ×2 (02:28→02:29)
[2023-09-28] MEDS ORDERED: Magnesium 2 GM/50 ML BAG (IN WATER) ONE (03:59)
[2023-09-28] MEDS ORDERED: NS 0.9% w/ 20 MEQ KCL 0 ML ONE (04:00)
[2023-09-28] MEDS ORDERED: Potassium Chloride 20 MEQ (100 mL) BAG ONE (04:03)
[2023-09-28 06:05] LABS: Anion Gap 13 mmol/L (10-20); BUN (Urea Nitrogen) 7 mg/dL (7.0-18.7); Calc. Creatinine Clearance 0 mL/min (70-130); Calcium 8.1 mg/dL (7.8-10.44); Carbon Dioxide 19 mmol/L (22-29); Chloride 105 mmol/L (98-107); Estimated GFR 115; Glucose 315 mg/dL (70-105); Potassium 4.2 mmol/L (3.5-5.1); Sodium 133 mmol/L (136-145)
[2023-09-28 06:07] LABS: Troponin I Less than 0.010 ng/mL (< 0.028)
== END 2023-09-28 06:20 | disposition home or self-care (01) ==
LOC: ERS 22:47
DX: E11.65 Type 2 diabetes mellitus with hyperglycemia (principal); E87.6 Hypokalemia; E83.42 Hypomagnesemia; F17.210 Nicotine dependence, cigarettes, uncomplicated; Z91.148 Patient's other noncompliance with medication regimen for other reason; Z55.6 Problems related to health literacy
CPT/HCPCS: 36415; 36416; 71045; 80048; 80053; 81001; 82010; 82805; 83605; 83690; 83735; 84484; 84703; 85025; 93005; 96361; 96365; 96375; J3475; J3480